=== PATIENT | male | born 1940 | race Caucasian/White ===

== ENCOUNTER 2016-12-16 10:48 | Inpatient (IN) | payer OTHER ==
[~2016-12-16] VITALS: Ht 167.6 cm; Wt 58.5 kg
--- NOTE | ~2016-12-16 | HC ---
[facility] [place] [address] CONSULTATION Name: ESTELASHARMILANATHALY Rodríguez Room #: 449-I [facility] IN ..#: [id number] Admission: 12/16/16 Attend Phys: Royer House MD Discharge: 12/17/16 Date of : 38 Report #: [id number] THIS REPORT FOR: //name// CC: Royer House REASON FOR CONSULTATION: Bradycardia. HISTORY OF PRESENT ILLNESS: The patient is a 76-year-old gentleman with a history of COPD, rheumatoid arthritis, and hepatitis C. He tells me that he has had 5 or 6 emergency room visits to [facility] last year for poor oral intake or obstipation or both. He has had several rehab stays last year for lightheadedness. He lives independently with help of his son and sister. Yesterday, a social science manager came to his house when he reported not feeling quite right. The social science manager took his blood pressure and found it low and paramedics were called. He does have intermittent episodes of dizziness and he has had symptomatic hypotension in the past with syncope. When paramedics arrived, his blood pressure the patient's reports was 85/49, he was bradycardia into the upper 40s, he was given 1 liter of fluid and 0.5 mg of atropine and his blood pressure normalized. He tells me that he tries to keep up with oral intake. There are no documented episodes of heart block. His presenting EKG was sinus bradycardia at a rate of 49. There were no ST or T-wave changes. ALLERGIES: To PENTAZOCINE. MEDICATIONS: His medicines include Paroxetine 20 mg daily, Seroquel 12.5 mg twice daily, tramadol as needed, and prednisone. PAST MEDICAL HISTORY: Medical records have been reviewed and include history of rheumatoid arthritis, hepatitis C, and anxiety disorder. SOCIAL HISTORY: He is a nonsmoker and nondrinker. FAMILY HISTORY: Notable for mother in her 70s of heart related problems. REVIEW OF SYSTEMS: All systems negative except as that noted above. PHYSICAL EXAMINATION: GENERAL: A frail elderly gentleman in no distress. VITAL SIGNS: Blood pressure is 133/84, heart rate is 62 and regular, he is afebrile, 5 feet 6 inches tall, and 129 pounds. HEENT: There are neither xanthelasma, subcutaneous xanthomata, oral mucosal or digital cyanosis or kyphoscoliosis present. CHEST: Clear to auscultation and percussion. CARDIOVASCULAR: Regular rate and rhythm with normal S1, S2. No murmurs or rubs. ABDOMEN: Soft and nontender. [facility] [address] [place] [address] CONSULTATION Name: NATHALY BENOIT Room #: 449-I [facility].#: [id number] Admission: 12/16/16 Attend Phys: Royer House MD Discharge: 12/17/16 Date of : 38 Report #: [id number] EXTREMITIES: Reveal changes of rheumatoid arthritis. No cyanosis or clubbing. Radial pulses are 2+. NEUROLOGIC: Alert with a nonfocal exam. LABORATORY DATA: Sodium is 138, potassium 3.7, creatinine 0.9. Troponin of 0. White count 4.7, hemoglobin 12, hematocrit 36, and platelet count 102. RADIOLOGICAL DATA: Chest x-ray is normal. EKG as detailed above. IMPRESSION: 1. Sinus bradycardia. 2. Probable intravascular volume depletion with hypotension, resolved following fluid administration. 3. Rheumatoid arthritis. 4. Hepatitis C. RECOMMENDATIONS: 1. There is no indication for permanent pacing. His relative hypotension resolved almost immediately after fluid administration. I do not suspect symptomatic bradycardia as the etiology. 2. I have recommended liberalizing his salt and fluid intake. 3. Avoid AV aldair blocking medicines. 4. Thyroid function studies. No additional cardiovascular testing is needed at this point. For persistent hypotension in the absence of volume depletion, you could consider use of midodrine. Thank you for asking me to participate in his care. <ELECTRONICALLY SIGNED> By: Cornelio Cox MD, FACC 12/22/16 0838 0733 1000 Cornelio Cox MD, FACC /nt
--- NOTE | ~2016-12-16 | EKG ---
[address] [address] ELECTROCARDIOGRAM REPORT Name: NATHALY BENOIT Room #: 170-3 ADM IN M.R.#: [id number] Admission: 12/16/16 Attend Phys: Royer House MD Discharge: Date of : 38 Report #: [id number] THIS REPORT FOR: //name// [facility] ED Test Date: 2016-12-16 Test Time: 11:01:06 Pat Name: NATHALY BENOIT Department: Room: 170 Gender: M Hse Specialist: marquita : 1940 Requested By: Jose Carlos Wolfe Order Number: [id number] MD: Nimesh Bernal Measurements Intervals [place] Rate: 49 P: 20 HI: 172 QRS: 14 QRSD: 118 T: 28 QT: 483 QTc: 437 Interpretive Statements Sinus bradycardia Nonspecific intraventricular conduction delay Probable inferior infarct, old No previous ECG available for comparison Electronically Signed On 12-16-2016 13:08:43 PROCESSING ARCHIVIST by Nimesh Bernal [email or web address] <ELECTRONICALLY SIGNED> By: Nimesh Bernal MD 12/16/16 1308 1101 00 Nimesh Bernal MD /LEE
[~2016-12-16 10:48] MED LIST: AVAPRO300 MG PO; BENADRYL25 MG PO; CIPROFLOXACIN500 M1 PO; COZAAR 50 MG TA50 M2 PO; FLAGYL500 MG PO; LEVAQUIN 500 M500 M2 PO; MIRALAX17 GM PO; NORCO 5-325 TA1 EACH PO; PAXIL10 MG PO; PREDNISONE 20 M20 MG PO; PRILOSEC 20 MG20 MG PO; RESTORIL30 MG PO; SEROQUEL 25 MG25 M1 PO; TRAMADOL 50 MG50 MG PO; TYLENOL325 MG PO; VICODIN 5-3001 EACH PO; XANAX 0.25 MG0.25 MG PO; ZOFRAN ODT4 MG PO
[2016-12-16 11:19] LABS: HEMATOCRIT 36.4 % (42.0-52.0); HEMOGLOBIN 12.2 gm/dL (14.0-18.0); MCH 30.8 pg (26.0-34.0); MCHC 33.6 % (28.0-37.0); MCV 91.7 fL (80.0-100.0); PLATELET COUNT 102 thou/uL (150-400); RBC 3.97 mil/uL (4.50-6.00); RDW 14.4 % (10.5-14.5); WBC 4.7 thou/uL (4.0-11.0)
[2016-12-16 11:23] LABS: MANUAL DIFF YES
[2016-12-16 11:28] LABS: CREATININE 0.9 mg/dL (0.6-1.3); POTASSIUM 3.7 mmol/L (3.5-5.1)
[2016-12-16 11:51] LABS: ABSOLUTE NEUTROPHILS 2.7 thou/uL (1.4-8.2); LARGE PLATELETS FEW; PLATELET ESTIMATE DECREASED; TOTAL CELL COUNT 100
[2016-12-16 12:39] LABS: URINE BILIRUBIN NEGATIVE (Negative); URINE BLOOD NEGATIVE (Negative); URINE COLOR YELLOW; URINE GLUCOSE-RANDOM* NEGATIVE (Negative); URINE KETONES NEGATIVE (Negative); URINE LEUKOCYTES-REFLEX NEGATIVE (Negative); URINE PROTEIN (DIPSTICK) NEGATIVE (Negative); URINE SPECIFIC GRAVITY 1.015 (1.003-1.035); URINE UROBILINOGEN 0.2 E.U./dl (0.2-1.0)
[2016-12-16 15:52] VITALS: BP 126/62
[2016-12-16 20:36] VITALS: BP 144/77
[2016-12-17 03:49] VITALS: BP 133/84
[2016-12-17 07:40] VITALS: BP 169/87
[2016-12-17 10:48] VITALS: BP 181/88
[2016-12-17 12:14] VITALS: BP 181/88
== END 2016-12-17 13:35 | disposition home health service (06) | DRG 316 ==
LOC: ER 10:48 → EROBS 12:39 → 4W 12:39
PROVIDERS: Physician Assistant
DX: I95.9 Hypotension, unspecified (principal); F32.9 Major depressive disorder, single episode, unspecified; F41.9 Anxiety disorder, unspecified; G47.00 Insomnia, unspecified; J44.9 Chronic obstructive pulmonary disease, unspecified; Z79.899 Other long term (current) drug therapy; Z88.8 Allergy status to other drugs, medicaments and biological substances; Z82.49 Family history of ischemic heart disease and other diseases of the circulatory system; B19.20 Unspecified viral hepatitis C without hepatic coma; M06.9 Rheumatoid arthritis, unspecified; R00.1 Bradycardia, unspecified; E86.9 Volume depletion, unspecified
CPT/HCPCS: 10045

== ENCOUNTER 2017-04-09 20:42 | Emergency (ER) | payer OTHER ==
[~2017-04-09] VITALS: Ht 167.6 cm; Wt 59.0 kg
[2017-04-09 21:28] LABS: HEMATOCRIT 39.5 % (42.0-52.0); HEMOGLOBIN 13.2 gm/dL (14.0-18.0); MCH 30.2 pg (26.0-34.0); MCHC 33.5 g/dL (28.0-37.0); MCV 90.4 fL (80.0-100.0); PLATELET COUNT 127 thou/uL (150-400); RBC 4.37 mil/uL (4.50-6.00); RDW 15.8 % (10.5-14.5); WBC 7.3 thou/uL (4.0-11.0)
[2017-04-09 21:29] LABS: MANUAL DIFF YES
[2017-04-09 21:44] LABS: CALCIUM 8.6 mg/dL (8.5-10.1); CREATININE 0.8 mg/dL (0.7-1.3); POTASSIUM 4.1 mmol/L (3.5-5.1)
[2017-04-09 21:44] LABS: URINE BILIRUBIN NEGATIVE (Negative); URINE BLOOD NEGATIVE (Negative); URINE COLOR YELLOW; URINE GLUCOSE-RANDOM* NEGATIVE (Negative); URINE KETONES NEGATIVE (Negative); URINE LEUKOCYTES-REFLEX NEGATIVE (Negative); URINE PROTEIN (DIPSTICK) NEGATIVE (Negative); URINE SPECIFIC GRAVITY <= 1.005 (1.003-1.035); URINE UROBILINOGEN 0.2 E.U./dl (0.2-1.0)
[2017-04-09 21:49] LABS: ALBUMIN 3.5 g/dL (3.4-5.0); TOTAL BILIRUBIN 0.6 mg/dL (<0.1-1.0); TOTAL PROTEIN 7.8 g/dL (6.4-8.2)
[2017-04-09 21:55] LABS: ABSOLUTE NEUTROPHILS 4.5 thou/uL (1.4-8.2); ANISOCYTOSIS 1+; POIKILOCYTOSIS SLIGHT; POLYCHROMASIA OCCASIONAL; TOTAL CELL COUNT 100
[2017-04-09 22:09] LABS: APTT 27.9 Seconds (24.5-32.8); INR 1.1; PROTIME 11.2 Seconds (9.3-11.4)
== END 2017-04-10 01:29 | disposition home or self-care (01) ==
LOC: ER 20:42
PROVIDERS: Emergency Medicine
DX: K59.00 Constipation, unspecified (principal); R33.9 Retention of urine, unspecified; F32.9 Major depressive disorder, single episode, unspecified; F41.9 Anxiety disorder, unspecified; G47.00 Insomnia, unspecified; J44.9 Chronic obstructive pulmonary disease, unspecified; M06.9 Rheumatoid arthritis, unspecified; Z88.8 Allergy status to other drugs, medicaments and biological substances

== ENCOUNTER 2017-04-21 17:34 | Emergency (ER) | payer OTHER ==
[~2017-04-21] VITALS: Ht 167.6 cm; Wt 59.0 kg
[2017-04-21] MEDS ORDERED: FLOMAX0.4 MG PO (18:23)
[2017-04-21 18:59] LABS: URINE BILIRUBIN NEGATIVE (Negative); URINE BLOOD NEGATIVE (Negative); URINE COLOR YELLOW; URINE GLUCOSE-RANDOM* NEGATIVE (Negative); URINE KETONES 1+ (Negative); URINE LEUKOCYTES-REFLEX NEGATIVE (Negative); URINE PROTEIN (DIPSTICK) NEGATIVE (Negative); URINE UROBILINOGEN 0.2 E.U./dl (0.2-1.0)
== END 2017-04-21 19:10 | disposition home or self-care (01) ==
LOC: ER 17:34
PROVIDERS: Emergency Medicine
DX: N40.1 Benign prostatic hyperplasia with lower urinary tract symptoms (principal); R33.8 Other retention of urine; F41.9 Anxiety disorder, unspecified; G47.00 Insomnia, unspecified; F32.9 Major depressive disorder, single episode, unspecified; J44.9 Chronic obstructive pulmonary disease, unspecified; M06.9 Rheumatoid arthritis, unspecified; Z88.8 Allergy status to other drugs, medicaments and biological substances

== ENCOUNTER 2018-01-22 07:20 | Emergency (ER) | payer OTHER ==
[~2018-01-22] VITALS: Ht 167.6 cm; Wt 58.5 kg
--- NOTE | ~2018-01-22 | EKG ---
[place] [address] [address] [facility] [employer] [place] [address] ELECTROCARDIOGRAM REPORT Name: NATHALY BENOIT Marcos [id number] Admission: 01/22/18 Attend Phys: Discharge: 01/22/18 Date of : 38 Report #: [id number] THIS REPORT FOR: //name// [facility] ED Test Date: 2018-01-22 Test Time: 08:47:08 Pat Name: NATHALY BENOIT Department: Room: Gender: Counseling Psychologist: [place] : 1940 Requested By: Marco Rhodes Order Number: [id number] MD: Faheem Turner Measurements Intervals [place] Rate: 53 P: -6 MT: 149 QRS: 13 QRSD: 100 T: 35 QT: 435 QTc: 409 Interpretive Statements Sinus bradycardia Left ventricular hypertrophy Baseline wander in lead(s) V2 Compared to ECG 12/16/2016 11:01:06 No significant change Electronically Signed On 01-22-2018 12:25:31 CONCAVING MACHINE OPERATOR by Faheem Turner [email or web address] <ELECTRONICALLY SIGNED> By: Faheem Turner MD 01/22/18 1225 0847 0847 Faheem Turner MD /LEE
[~2018-01-22 07:20] MED LIST changes: +ATIVAN0.5 MG PO; +FLOMAX0.4 MG PO; +POTASSIUM20 PO
[2018-01-22 08:13] LABS: HEMATOCRIT 41.6 % (42.0-52.0); HEMOGLOBIN 13.8 gm/dL (14.0-18.0); MCH 31.4 pg (26.0-34.0); MCHC 33.2 g/dL (28.0-37.0); MCV 94.6 fL (80.0-100.0); RBC 4.4 mil/uL (4.50-6.00); RDW 13.8 % (10.5-14.5); WBC 6.2 thou/uL (4.0-11.0)
[2018-01-22 08:13] LABS: URINE BILIRUBIN NEGATIVE (Negative); URINE BLOOD 2+ (Negative); URINE CLARITY CLOUDY; URINE COLOR YELLOW; URINE GLUCOSE-RANDOM* NEGATIVE (Negative); URINE KETONES NEGATIVE (Negative); URINE PROTEIN (DIPSTICK) TRACE (Negative); URINE SPECIFIC GRAVITY 1.015 (1.005-1.035)
[2018-01-22 08:14] LABS: URINE LEUKOCYTES-REFLEX 3+ (Negative); URINE NITRITE-REFLEX POSITIVE (Negative)
[2018-01-22 08:23] LABS: ANION GAP 7 mmol/L (7-16); BUN 14 mg/dL (7-18); CHLORIDE 104 mmol/L (98-107); CO2 26 mmol/L (21-32); CREATININE 0.9 mg/dL (0.7-1.3); GLUCOSE 78 mg/dL (74-106); SODIUM 137 mmol/L (136-145)
[2018-01-22 08:26] LABS: BACTERIA-REFLEX >30 Many /HPF (None Seen); CASTS None Seen /LPF (None Seen); CRYSTALS None Seen /LPF (None Seen); SQUAMOUS None Seen /LPF (0-3); URINE RBC 0-2 Rare /HPF (0-2)
[2018-01-22 08:32] LABS: ALBUMIN 2.9 g/dL (3.4-5.0); SGOT 41 U/L (15-37); SGPT 52 U/L (30-65); TOTAL BILIRUBIN 0.5 mg/dL (<0.1-1.0); TOTAL PROTEIN 7.5 g/dL (6.4-8.2); TROPONIN-I < 0.04 ng/mL (<0.06)
[2018-01-22] MEDS ORDERED: KEFLEX500 M1 PO (09:42)
[2018-01-22 10:25] VITALS: BP 170/68
== END 2018-01-22 11:07 | disposition home or self-care (01) ==
LOC: ER 07:20
PROVIDERS: Emergency Medicine
DX: N39.0 Urinary tract infection, site not specified (principal); F41.9 Anxiety disorder, unspecified; F32.9 Major depressive disorder, single episode, unspecified; M06.9 Rheumatoid arthritis, unspecified; J44.9 Chronic obstructive pulmonary disease, unspecified; G47.00 Insomnia, unspecified; Z88.6 Allergy status to analgesic agent

== ENCOUNTER 2018-04-25 11:20 | Emergency (ER) | payer OTHER ==
[~2018-04-25] VITALS: Ht 167.6 cm; Wt 51.3 kg
[~2018-04-25 11:20] MED LIST changes: +KEFLEX500 M1 PO
== END 2018-04-25 14:58 ==
LOC: ER 11:20
DX: S09.90XA Unspecified injury of head, initial encounter (principal); F41.9 Anxiety disorder, unspecified; F32.9 Major depressive disorder, single episode, unspecified; J44.9 Chronic obstructive pulmonary disease, unspecified; Z88.6 Allergy status to analgesic agent; W05.0XXA Fall from non-moving wheelchair, initial encounter; Y93.89 Activity, other specified; Y92.89 Other specified places as the place of occurrence of the external cause; Y99.8 Other external cause status